=== PATIENT | male | born 2000 | race Caucasian/White ===

== ENCOUNTER 2022-01-14 08:15 | Emergency (ER) | payer BC ==
[2022-01-14 08:39] VITALS: BP 150/84; PULSE 110
[2022-01-14] MEDS ORDERED: Ondansetron 4 MG/2 ML SDV IVPUSH ONE (08:42)
[2022-01-14] MEDS ORDERED: Sodium Chloride 0.9% 1,000 ML IV ONE (08:42)
[2022-01-14] MEDS ORDERED: Morphine 4 MG/ML VIAL IVPUSH ONE (08:55)
[2022-01-14 09:35] LABS: CORONAVIRUS COVID-19 NAA NEGATIVE (NEGATIVE); INFLUENZA A NAA NEGATIVE (NEGATIVE); INFLUENZA B NAA NEGATIVE (NEGATIVE)
[2022-01-14 09:39] LABS: BLOOD UREA NITROGEN,BUN 16 mg/dL (7.0-18.0); CARBON DIOXIDE,CO2 22.2 mmol/L (21.0-32.0); CHLORIDE,CL 102 mmol/L (98-107); ESTIMATED GFR > 60.0 ml/min; GLUCOSE RANDOM 93 mg/dL (74-106); LIPASE 61 U/L (73-393); POTASSIUM,K 4.1 mmol/L (3.5-5.1); SODIUM,NA 138 mmol/L (136-148)
== END 2022-01-14 10:21 | disposition home or self-care (01) ==
LOC: MW.ED 08:15
DX: K21.9 Gastro-esophageal reflux disease without esophagitis (principal); Z20.822 Contact with and (suspected) exposure to COVID-19
CPT/HCPCS: 0240U; 36415; 80053; 83036; 83690; 83735; 85025; 96374; 96375; 99284; J2270; J2405; J7030; 99283

== ENCOUNTER 2023-02-21 16:14 | Emergency (ER) | payer BC, MEDICAID ==
[2023-02-21] MEDS ORDERED: Sodium Chloride 0.9% 1,000 ML IV ONE (16:42)
[2023-02-21 17:28] LABS: HEMATOCRIT 47.6 % (38.0-50.0); HEMOGLOBIN 16.5 g/dL (13.0-17.0); MEAN CORPUSCULAR HEMOGLOBIN 28.8 pg (27.0-32.0); MEAN CORPUSCULAR HGB CONC 34.7 g/dL (31.0-37.0); MEAN CORPUSCULAR VOLUME 83.2 fL (80.0-98.0); NRBC ABSOLUTE 0 K/uL; PLATELET COUNT,PLT 356 K/uL (150-400); RED BLOOD CELL COUNT 5.72 M/uL (4.50-5.90); WHITE BLOOD CELL COUNT,WBC 13.76 K/uL (4.0-11.0)
[2023-02-21 17:46] LABS: CALCIUM 9.4 mg/dL (8.5-10.1); CARBON DIOXIDE,CO2 25.3 mmol/L (21.0-32.0); CREATININE 0.8 mg/dL (0.8-1.3); EST CRCL DRUG DOSING (CG) 155.57 mL/min; POTASSIUM,K 4.2 mmol/L (3.5-5.1)
[2023-02-21 17:47] LABS: LYMPHOCYTES ABSOLUTE MAN 1.1 (0.6-2.4); LYMPHOCYTES PERCENT MAN 8 % (16.0-40.0); METAMYELOCYTE ABSOLUTE MAN 0.1; METAMYELOCYTE PERCENT MAN 1 %; MONOCYTES ABSOLUTE MAN 0.6 (0.0-0.8); MONOCYTES PERCENT MAN 4 % (0.0-15.0); MYELOCYTE ABSOLUTE MAN 0.3; MYELOCYTE PERCENT MAN 2 %; SEG NEUTROPHILS ABSOLUTE MAN 11.7 (1.4-5.7); SEG NEUTROPHILS PERCENT MAN 85 % (48.0-80.0)
[2023-02-21 18:28] VITALS: BP 132/73; PULSE 99
== END 2023-02-21 18:29 | disposition home or self-care (01) ==
LOC: MW.ED 16:14
DX: R00.0 Tachycardia, unspecified (principal); E86.0 Dehydration; E86.9 Volume depletion, unspecified
CPT/HCPCS: 36415; 80048; 85025; 93005; 96360; 99284; J7030

== ENCOUNTER 2023-12-12 03:07 | Emergency (ER) | payer BC ==
[2023-12-12 03:58] LABS: BASOPHILS ABSOLUTE AUTO 0.08 K/uL (0.00-0.20); BASOPHILS PERCENT AUTO 0.6 % (0.0-1.0); EOSINOPHILS ABSOLUTE AUTO 0.28 K/uL (0.00-0.45); HEMATOCRIT 45.1 % (42.0-52.0); HEMOGLOBIN 15.6 g/dL (14.0-18.0); IMMATURE GRAN ABSOLUTE AUTO 0.14 K/uL (0.00-0.05); LYMPHOCYTES ABSOLUTE AUTO 3.91 K/uL (1.00-4.80); LYMPHOCYTES PERCENT AUTO 27.8 % (24.0-44.0); MEAN CORPUSCULAR HGB CONC 34.6 g/dL (32.0-36.0); MEAN CORPUSCULAR VOLUME 83.8 fL (83.0-99.0); MEAN PLATELET VOLUME 10.8 fL (9.4-12.4); MONOCYTES ABSOLUTE AUTO 1.04 K/uL (0.00-0.80); MONOCYTES PERCENT AUTO 7.4 % (0.0-8.0); NEUTROPHILS ABSOLUTE AUTO 8.61 K/uL (1.80-7.70); NEUTROPHILS PERCENT AUTO 61.2 % (41.0-71.0); PLATELET COUNT,PLT 343 K/uL (150-400); RED BLOOD CELL COUNT 5.38 M/uL (4.52-5.90); WHITE BLOOD CELL COUNT,WBC 14.06 K/uL (3.9-11.3)
[2023-12-12 04:28] LABS: A/G RATIO 0.9 (0.9-1.6); ALANINE AMINOTRANSFERASE,ALT 55 IU/L (14-63); ALBUMIN 3.8 g/dL (3.4-5.0); ALKALINE PHOSPHATASE 98 U/L (46-116); ASPARTATE AMNIOTRANSFERASE,AST 15 IU/L (15-37); BILIRUBIN TOTAL 0.4 mg/dL (0.2-1.0); BLOOD UREA NITROGEN,BUN 14 mg/dL (7.0-18.0); CARBON DIOXIDE,CO2 26.1 mmol/L (21.0-32.0); CHLORIDE,CL 104 mmol/L (98-107); CREATININE 1.1 mg/dL (0.8-1.3); EST CRCL DRUG DOSING (CG) 113.14 mL/min; GLUCOSE RANDOM 101 mg/dL (74-106); POTASSIUM,K 3.9 mmol/L (3.5-5.1); PROTEIN TOTAL,TP 7.8 g/dL (6.4-8.2); SODIUM,NA 141 mmol/L (136-148)
[2023-12-12 04:32] LABS: ESTIMATED GFR 98 mL/min (>60)
[2023-12-12] MEDS: Aspirin 325 MG Tab.EC PO ONE (06:26)
[2023-12-12 06:30] VITALS: BP 156/87; PULSE 88
== END 2023-12-12 06:30 | disposition home or self-care (01) ==
LOC: MW.ED 03:07
DX: I10 Essential (primary) hypertension (principal)
CPT/HCPCS: 36415; 71045; 80053; 83690; 84484; 85025; 99285; A9270

== ENCOUNTER 2024-09-01 20:33 | Emergency (ER) | payer BC ==
[2024-09-01] MEDS ORDERED: Sodium Chloride 0.9% 10 ML Syringe FLUSH PRN (20:57)
[2024-09-01] MEDS: Ketorolac 30 MG/ML SDV IVPUSH ONE (21:22)
[2024-09-01] MEDS: Prochlorperazine 10 MG/2 ML SDV IVPUSH ONE (21:23)
[2024-09-01] MEDS: diphenhydrAMINE 50 MG/ML SDV IVPUSH ONE (21:23)
[2024-09-01 21:41] LABS: BASOPHILS ABSOLUTE AUTO 0.09 K/uL (0.00-0.20); BASOPHILS PERCENT AUTO 0.6 % (0.0-1.0); EOSINOPHILS ABSOLUTE AUTO 0.51 K/uL (0.00-0.45); EOSINOPHILS PERCENT AUTO 3.3 % (0.0-6.0); HEMATOCRIT 41.8 % (42.0-52.0); HEMOGLOBIN 14.5 g/dL (14.0-18.0); IMMATURE GRAN ABSOLUTE AUTO 0.13 K/uL (0.00-0.05); IMMATURE GRAN PERCENT AUTO 0.9 % (0.0-0.4); LYMPHOCYTES ABSOLUTE AUTO 3.45 K/uL (1.00-4.80); LYMPHOCYTES PERCENT AUTO 22.6 % (24.0-44.0); MEAN CORPUSCULAR HEMOGLOBIN 29.2 pg (28.0-32.0); MEAN CORPUSCULAR HGB CONC 34.7 g/dL (32.0-36.0); MEAN CORPUSCULAR VOLUME 84.1 fL (83.0-99.0); MEAN PLATELET VOLUME 10.6 fL (9.4-12.4); MONOCYTES ABSOLUTE AUTO 1.16 K/uL (0.00-0.80); MONOCYTES PERCENT AUTO 7.6 % (0.0-8.0); PLATELET COUNT,PLT 354 K/uL (150-400); RED BLOOD CELL COUNT 4.97 M/uL (4.52-5.90); WHITE BLOOD CELL COUNT,WBC 15.24 K/uL (3.9-11.3)
[2024-09-01 22:06] LABS: A/G RATIO 0.9 (0.9-1.6); ALBUMIN 3.7 g/dL (3.4-5.0); BILIRUBIN TOTAL 0.3 mg/dL (0.2-1.0); C-REACTIVE PROTEIN 0.58 mg/dL (<0.3); CALCIUM 8.8 mg/dL (8.5-10.1); CREATININE 0.9 mg/dL (0.8-1.3); EST CRCL DRUG DOSING (CG) 137.12 mL/min; MAGNESIUM 2.1 mg/dL (1.8-2.4); POTASSIUM,K 3.9 mmol/L (3.5-5.1); PROTEIN TOTAL,TP 7.6 g/dL (6.4-8.2)
[2024-09-01 23:47] VITALS: BP 125/82; PULSE 78
== END 2024-09-01 23:45 | disposition home or self-care (01) ==
LOC: MW.ED 20:33
DX: F07.81 Postconcussional syndrome (principal); R03.0 Elevated blood-pressure reading, without diagnosis of hypertension; Z91.018 Allergy to other foods; Z91.030 Bee allergy status
CPT/HCPCS: 36415; 70450; 80053; 83735; 85025; 85652; 86140; 96374; 96375; 99284; J0780; J1200; J1885

== ENCOUNTER 2025-05-14 17:48 | Emergency (ER) | payer SELFPAY ==
[2025-05-14 18:22] LABS: BASOPHILS ABSOLUTE AUTO 0.11 K/uL (0.00-0.20); BASOPHILS PERCENT AUTO 0.7 % (0.0-1.0); EOSINOPHILS ABSOLUTE AUTO 0.53 K/uL (0.00-0.45); EOSINOPHILS PERCENT AUTO 3.4 % (0.0-6.0); IMMATURE GRAN ABSOLUTE AUTO 0.29 K/uL (0.00-0.05); IMMATURE GRAN PERCENT AUTO 1.9 % (0.0-0.4); LYMPHOCYTES ABSOLUTE AUTO 3.27 K/uL (1.00-4.80); LYMPHOCYTES PERCENT AUTO 21.3 % (24.0-44.0); MEAN PLATELET VOLUME 10.7 fL (9.4-12.4); MONOCYTES ABSOLUTE AUTO 0.99 K/uL (0.00-0.80); MONOCYTES PERCENT AUTO 6.4 % (0.0-8.0); NEUTROPHILS ABSOLUTE AUTO 10.18 K/uL (1.80-7.70); NEUTROPHILS PERCENT AUTO 66.3 % (41.0-71.0); NRBC ABSOLUTE 0.00 K/uL (0.00-0.02); NRBC PERCENT 0.0 /100WBC (0.0-0.2); PLATELET COUNT,PLT 312 K/uL (150-400); RED BLOOD CELL COUNT 5.40 M/uL (4.52-5.90); WHITE BLOOD CELL COUNT,WBC 15.37 K/uL (3.9-11.3)
[2025-05-14] MEDS: Ketorolac 30 MG/ML SDV IVPUSH ONE (18:49)
[2025-05-14] MEDS: Pantoprazole 40 MG in Sodium Chloride 0.9% 10 ML IVPUSH ONE (18:49)
[2025-05-14 18:56] LABS: A/G RATIO 1.0 (0.9-1.6); ALANINE AMINOTRANSFERASE,ALT 84 IU/L (14-63); ASPARTATE AMNIOTRANSFERASE,AST 31 IU/L (15-37); BILIRUBIN TOTAL 0.5 mg/dL (0.2-1.0); BLOOD UREA NITROGEN,BUN 11 mg/dL (7.0-18.0); CARBON DIOXIDE,CO2 26.9 mmol/L (21.0-32.0); CHLORIDE,CL 101 mmol/L (98-107); CREATININE 0.9 mg/dL (0.8-1.3); EST CRCL DRUG DOSING (CG) 135.96 mL/min; ESTIMATED GFR 123 mL/min (>60); GLUCOSE RANDOM 106 mg/dL (74-106); POTASSIUM,K 3.7 mmol/L (3.5-5.1); PRO B-TYPE NATRIUR PEPT,BNPPRO 28 pg/mL (0-125); PROTEIN TOTAL,TP 7.6 g/dL (6.4-8.2); SODIUM,NA 138 mmol/L (136-148)
[2025-05-14 19:54] VITALS: BP 149/98; PULSE 78
== END 2025-05-14 19:55 | disposition home or self-care (01) ==
LOC: MW.ED 17:48
DX: J06.9 Acute upper respiratory infection, unspecified (principal); B97.89 Other viral agents as the cause of diseases classified elsewhere; R07.81 Pleurodynia; R09.1 Pleurisy; R06.02 Shortness of breath; F17.200 Nicotine dependence, unspecified, uncomplicated; Z79.890 Hormone replacement therapy; Z91.030 Bee allergy status; Z91.018 Allergy to other foods; Z79.899 Other long term (current) drug therapy
CPT/HCPCS: 36415; 71045; 80053; 83690; 83735; 83880; 84484; 85025; 85379; 87426; 93005; 96374; 96375; 99285; J1885; J2470; J8540; 93010; 99283